=== PATIENT | female | born 1950 | race Caucasian/White ===

== ENCOUNTER → 2017-06-03 | Outpatient (CLI) | payer MEDICARE, BC ==
[~2017-06-03] MED LIST: BACITRACIN30 GM TOP; BAYER CHEWABLE81 MG PO; MELATONIN5 M1 PO; ULTRAM PO
--- NOTE | ~2017-06-03 | MY11 ---
[facility] A Service of [facility] RADIOLOGY TEXT RESULTS PATIENT: AILEEN ALVARADO LOCATION: [facility] : 54 UNIT #: [id number] AGE: [address]: Shayne Lorenzo MD SEX: F ORDER DR: [id number] [address] [address] [id number] O MR#: [id number] Acc #: [id number] NAME: AILEEN ALVARADO. : 1950 SEX: F STUDY DATE/TIME: 06/03/2017 11:17 UNIT: [facility] ROOM: STUDY DESCRIPTION: MY Mammogram Screening Dig Serjio Attending Physician: Shayne Lorenzo M.D. Referring Physician: Shayne Lorenzo M.D. Ordering Physician: Shayne Lorenzo M.D. Primary Care Physician: Brandon Abdi Jr., M.D. MEDICAL IMAGING REPORT This report is preliminary unless electronic signature is present. EXAM Digital screening mammogram 06/03/2017 [facility] HISTORY 67-year-old woman, no risk elevation. Annual screen. COMPARISON 10/20/2013, 11/01/2014, 01/09/2016 FINDINGS Digital imaging of each breast was completed utilizing a two-view examination of each breast in craniocaudal and mediolateral-oblique projections. Review and interpretation of digital mammograms include a second review in conjunction with FDA-approved CAD device. There is a normal parenchymal presentation bilaterally consistent with the patient's age. There are no breast masses imaged and no parenchymal asymmetry is visualized. There are no suspicious microcalcifications and I see no focal architectural disturbance. IMPRESSION Negative screening digital mammogram. One-year followup recommended. Patients over the age of 40 are entered into a reminder system with target due date for the next mammogram. A result letter will also be sent to the patient. BIRADS: 1 Negative Dictated by... Shivam Mason M.D. [facility] A Service of [facility] RADIOLOGY TEXT RESULTS PATIENT: AILEEN ALVARADO LOCATION: [facility] : 54 UNIT #: [id number] AGE: [address]: Shayne Lorenzo MD SEX: F ORDER DR: THIS IS AN ELECTRONICALLY VERIFIED REPORT Shivam Mason M.D. at 06/04/2017 8:05 AM ART/chetan TD: 06/03/2017 18:46 JOB #: [id number] MEDICAL IMAGING REPORT Page 1 of 1
== END | disposition home or self-care (01) ==
LOC: SMAM 10:40
DX: Z12.31 Encounter for screening mammogram for malignant neoplasm of breast (principal)
CPT/HCPCS: G0202